=== PATIENT | male | born 2000 | race Caucasian/White ===

== ENCOUNTER 2025-03-21 11:16 | Emergency (ER) | payer SELFPAY ==
[~2025-03-21] VITALS: Ht 172.7 cm; Wt 79.0 kg
[2025-03-21 11:18] VITALS: O2SAT 100
[2025-03-21 12:28] LABS: CLARITY URINE CLEAR (CLEAR); COLOR URINE YELLOW (YELLOW); GLUCOSE URINE NEGATIVE (NEGATIVE); KETONES URINE NEGATIVE (NEGATIVE); LEUKOCYTE ESTERASE URINE 1+ (NEGATIVE); NITRITE URINE NEGATIVE (NEGATIVE); OCCULT BLOOD URINE NEGATIVE (NEGATIVE); PH URINE 6.5 (4.5-8.0); PROTEIN URINE NEGATIVE (NEGATIVE); SPECIFIC GRAVITY URINE 1.019 (1.005-1.030); UROBILINOGEN URINE 0.2 E.U./dL (0.2-1.0)
[2025-03-21 12:50] LABS: BACTERIA URINE 2+; SQUAMOUS EPITHELIAL CELL URINE NONE SEEN /lpf (RARE/1+)
[2025-03-21 12:51] LABS: RBC URINE 0-2 /hpf (0-2); WBC URINE 15-25 /hpf (0-2)
[2025-03-21 13:55] VITALS: BP 132/84; PULSE 100; RESP 18; TEMP 36.7; O2SAT 99
== END 2025-03-21 14:04 | disposition home or self-care (01) ==
LOC: ER 11:16
DX: R33.9 Retention of urine, unspecified (principal); G82.20 Paraplegia, unspecified; Z79.899 Other long term (current) drug therapy
CPT/HCPCS: 81003; 87086; 87186; 87077; 51702; 99284; Z7610